=== PATIENT | male | born 1975 | race African-American/Black ===

== ENCOUNTER 2017-03-19 02:10 | Emergency (ER) | payer SELFPAY ==
[~2017-03-19] VITALS: Ht 185.4 cm; Wt 113.4 kg
[2017-03-19] MEDS ORDERED: NKM (02:24)
[2017-03-19] MEDS ORDERED: IBUPROFEN600 MG ORAL (03:14)
[2017-03-19 03:20] VITALS: BP 131/89
--- NOTE | 2017-03-19 06:49 | Emergency Room Report ---
History of Present Illness General Chief Complaint: Lower Extremity Injury Source: Patient Present Illness [facility] The patient [id number] male presented after increased right-sided knee pain after recent fall. Patient gradual onset of symptoms. Patient reports having increased pain to the medial portion of his right knee. The patient denies other locations of pain. He denied any numbness or weakness. Denied instability. 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 He denies any prior history of arthritis. He reports sharp pain worse with movement. Allergies: Coded Allergies: No Known Allergies (Unverified , 03/19/17) Patient History Past Medical History: see triage record Reviewed Nursing Documentation: PMH: Agreed, PSxH: Agreed Nursing Documentation-PMH Past Medical History: No Stated History Review of Systems All Other Systems: negative except mentioned in HPI Physical Exam Vital Signs Date Time Temp Pulse Resp B/P (MAP) Pulse Ox O2 Delivery O2 Flow Rate FiO2 03/19/17 02:19 97.9 94 16 131/89 99 Room Air General Appearance: well appearing, no apparent distress, alert, GCS 15 Head: normocephalic, atraumatic ENT: hearing grossly normal, normal voice Neck: full range of motion, supple Respiratory: no respiratory distress, speaking full sentences Cardiovascular #1: normal inspection, normal peripheral pulses, regular rate, rhythm Gastrointestinal: normal inspection, normal bowel sounds, non tender, soft Musculoskeletal: no calf tenderness, decreased range of mation, inflammation, other - right knee normal anterior drawer, medial stress, grind test. Some medial joint line tenderness Neurologic: normal gait Psychiatric: mood/affect normal Skin: no rash Medical Decision Making Diagnostic Impression: Primary Impression: Arthritis of knee ER Course Patient presented for knee pain. Differential diagnosis included was not limited to popliteal aneurysm, arthritis, dislocation, ligamentous injury, septic joint among others. Patient's benign exam and does not appear to require any laboratory testing at this time. X-ray imaging of the right knee 3 views interpreted by me showed a degenerative changes without fracture. The patient was advised to followup with his primary care physician for reexamination. Knee shows no evidence of ligamentous laxity this time however this may change after swelling diminishes. The patient is advised to keep his legs elevated as much possible the taking ibuprofen for pain. Last Vital Signs Date Time Temp Pulse Resp B/P (MAP) Pulse Ox O2 Delivery O2 Flow Rate FiO2 03/19/17 03:20 97.9 16 131/89 99 Room Air 03/19/17 02:19 94 Status: improved Disposition: HOME, SELF-CARE Condition: Stable Scripts Ibuprofen* (MOTRIN*) 600 Mg Tablet 600 MG ORAL Q8H Y for For Pain, #30 TAB 0 Refills Prov: Mac Wilson 03/19/17 Patient Instructions: Arthritis, Bursitis Mac Wilson Mar 19, 2017 06:49
--- NOTE | 2017-03-19 12:01 | Diagnostic Imaging Report ---
Indication: PAIN status post fall Technique: 3 views of the right knee Comparison: None Findings:No acute fractures. No dislocations. Joint spaces are preserved. Questionable small suprapatellar effusion Impression:No acute bony trauma Equivocal small effusion. Correlate with clinical findings This agrees with the preliminary interpretation provided by the emergency room physician
== END 2017-03-19 03:20 | disposition home or self-care (01) ==
LOC: EMR 02:36
DX: M17.11 Unilateral primary osteoarthritis, right knee (principal); W19.XXXA Unspecified fall, initial encounter; Y92.89 Other specified places as the place of occurrence of the external cause
CPT/HCPCS: 96360; 99284